=== PATIENT | female | born 1940 | race Caucasian/White ===

== ENCOUNTER 2016-11-04 20:53 | Observation (INO) | payer OTHER ==
[~2016-11-04] VITALS: Ht 160 cm; Wt 100.1 kg
[~2016-11-04 20:53] MED LIST: ALEVE220 MG PO; ANTIVERT25 MG PO; ESOMEPRAZOLE MA40 MG PO; KEFLEX500 MG PO; PERCOCET 5/31 TABLET PO; SYNTHROID100 MCG PO; ZOFRAN4 MG PO; [UNRECOGNIZED DRUG - REMARK] OP
[2016-11-04 21:59] LABS: EOSINOPHIL (%) 7.4 % (0-5); EOSINOPHIL COUNT 0.5 K/uL (0-0.3); HEMATOCRIT 35.6 % (36.0-46.0); IMMATURE GRANULOCYTE (%) 0.1 % (0.0-0.7); INSTRUMENT ABS NEUTROPHIL CT 4.3 K/uL; LYMPHOCYTE COUNT 1.6 K/uL (1.0-2.8); MCV 96.7 FL (83-99); MEAN PLAT.VOLUME 9.4 uM^3 (9.5-12.4); MONOCYTE (%) 8.4 % (3-12); MONOCYTE COUNT 0.6 K/uL (0-0.8); NEUTROPHIL (%) 60.8 % (45-76); NEUTROPHIL COUNT 4.3 K/uL (1.8-6.4); PLATELET COUNT 169 K/uL (156-360); RBC DIS.WIDTH-CV 13.8 % (11.8-14.6); RBC DIS.WIDTH-SD 49.2 % (39-53); RED BLOOD COUNT 3.68 M/uL (3.80-5.20)
[2016-11-04 22:22] LABS: CHLORIDE 109 mEq/L (99-109); POTASSIUM 3.7 mEq/L (3.7-5.4); SODIUM 143 mEq/L (136-147)
[2016-11-04 22:23] LABS: GLUCOSE 97 mg/dL (70-99)
[2016-11-04 22:25] LABS: ANION GAP 9 MEQ/L (2-14)
[2016-11-04 22:27] LABS: GFR ESTIMATE (CALCULATED) > 59 mL/min/
[2016-11-04 22:28] LABS: UREA NITROGEN (BUN) 28 mg/dL (9-23)
[2016-11-04 22:31] LABS: TROP-I INTERPRETATION NEGATIVE; TROPONIN-I < 0.01 ng/mL (0.0-0.30)
[2016-11-05 01:09] VITALS: BP 128/68
[2016-11-05 01:57] LABS: DIRECT BILIRUBIN 0.2 mg/dL (0.0-0.3); SAMPLE HEMOLYSIS CHECK 0; SAMPLE ICTERIC CHECK 0; SAMPLE LIPEMIA CHECK 0; TOTAL BILIRUBIN 0.9 MG/DL (0.0-1.0)
[2016-11-05 02:03] LABS: ALKALINE PHOSPHATASE 59 IU/L (3-129); LIPASE 30 U/L (1.0-51.0)
[2016-11-05 05:07] VITALS: BP 136/66
[2016-11-05 05:46] LABS: IRON 60 MCG/DL (35-150)
[2016-11-05 07:30] LABS: D-DIMER ELISA 0.44 mg/L FEU (< 0.57)
[2016-11-05 08:47] VITALS: BP 121/59
[2016-11-05 09:32] LABS: TROP-I INTERPRETATION NEGATIVE; TROPONIN-I < 0.01 ng/mL (0.0-0.30)
[2016-11-05 11:34] VITALS: BP 125/64
[2016-11-05 12:30] LABS: TROP-I INTERPRETATION NEGATIVE; TROPONIN-I < 0.01 ng/mL (0.0-0.30)
[2016-11-05 14:49] LABS: INTERNAL CONTROL VALID? YES
[2016-11-05 15:23] LABS: EOSINOPHIL (%) 8.1 % (0-5); EOSINOPHIL COUNT 0.4 K/uL (0-0.3); HEMATOCRIT 35.6 % (36.0-46.0); IMMATURE GRANULOCYTE (%) 0.2 % (0.0-0.7); INSTRUMENT ABS NEUTROPHIL CT 2.5 K/uL; LYMPHOCYTE COUNT 1.2 K/uL (1.0-2.8); MCH 31.4 PG (29.0-34.0); MCHC 32.3 G/DL (30.0-36.0); MCV 97.3 FL (83-99); MEAN PLAT.VOLUME 9.4 uM^3 (9.5-12.4); MONOCYTE COUNT 0.5 K/uL (0-0.8); NEUTROPHIL (%) 54.1 % (45-76); NEUTROPHIL COUNT 2.5 K/uL (1.8-6.4); PLATELET COUNT 160 K/uL (156-360); RBC DIS.WIDTH-CV 13.8 % (11.8-14.6); RBC DIS.WIDTH-SD 49.3 % (39-53); RED BLOOD COUNT 3.66 M/uL (3.80-5.20); WHITE BLOOD COUNT 4.6 K/uL (4.1-10.2)
== END 2016-11-05 17:38 | disposition home or self-care (01) ==
LOC: EME 20:53 → EDOF 23:18 → 5WEST 23:18
PROVIDERS: Emergency Medicine; Hospitalist; Nurse Practitioner Family; Physician Assistant
DX: R07.9 Chest pain, unspecified (principal); D64.9 Anemia, unspecified; R19.5 Other fecal abnormalities; G47.33 Obstructive sleep apnea (adult) (pediatric); J45.909 Unspecified asthma, uncomplicated; K21.9 Gastro-esophageal reflux disease without esophagitis; E03.9 Hypothyroidism, unspecified; N28.1 Cyst of kidney, acquired; K57.90 Diverticulosis of intestine, part unspecified, without perforation or abscess without bleeding; M25.562 Pain in left knee; M25.561 Pain in right knee; R00.2 Palpitations; Z96.643 Presence of artificial hip joint, bilateral; Z82.49 Family history of ischemic heart disease and other diseases of the circulatory system; Z80.3 Family history of malignant neoplasm of breast; Z88.8 Allergy status to other drugs, medicaments and biological substances; Z91.09 Other allergy status, other than to drugs and biological substances
CPT/HCPCS: 71020; 80048; 80076; 82272; 83540; 83690; 83880; 84443; 84466; 84484; 85025; 85379; 93005; 94660; G0378; J1644; J7120

== ENCOUNTER 2017-11-23 21:27 | Emergency (ER) | payer OTHER ==
[~2017-11-23] VITALS: Ht 157.5 cm; Wt 111.6 kg
[2017-11-23 22:17] LABS: HEMATOCRIT 37.1 % (36.0-46.0); HEMOGLOBIN 12.3 G/DL (11.9-15.5); MCHC 33.2 G/DL (30.0-36.0); MCV 96.6 FL (83-99); PLATELET COUNT 165 K/uL (156-360); RBC DIS.WIDTH-CV 13.4 % (11.8-14.6); RBC DIS.WIDTH-SD 47.1 % (39-53); RED BLOOD COUNT 3.84 M/uL (3.80-5.20); WHITE BLOOD COUNT 7.8 K/uL (4.1-10.2)
[2017-11-23 22:31] LABS: CHLORIDE 104 mEq/L (99-109); SODIUM 141 mEq/L (136-147)
[2017-11-23 22:32] LABS: MAGNESIUM 2.5 mg/dL (1.3-2.7)
[2017-11-23 22:33] LABS: GLUCOSE 99 mg/dL (70-99)
[2017-11-23 22:37] LABS: CREATININE 0.8 mg/dL (0.6-1.3); GFR ESTIMATE (CALCULATED) > 59 mL/min/
[2017-11-23 22:38] LABS: UREA NITROGEN (BUN) 21 mg/dL (9-23)
[2017-11-23 22:39] LABS: CREATINE KINASE 61 IU/L (1-294)
[2017-11-23 22:44] LABS: TROP-I INTERPRETATION NEGATIVE; TROPONIN-I < 0.01 ng/mL (0.0-0.30)
[2017-11-24 01:36] VITALS: BP 110/77
[2017-11-24 08:26] LABS: THYROTROPIN (TSH) 8.1 MIU/L (0.4-5.5)
== END 2017-11-24 01:40 | disposition home or self-care (01) ==
LOC: EME 21:27
PROVIDERS: Physician Assistant
DX: R06.09 Other forms of dyspnea (principal); J45.909 Unspecified asthma, uncomplicated; G47.30 Sleep apnea, unspecified; K21.9 Gastro-esophageal reflux disease without esophagitis; E03.9 Hypothyroidism, unspecified; Z96.643 Presence of artificial hip joint, bilateral; Z88.6 Allergy status to analgesic agent; Z91.041 Radiographic dye allergy status
CPT/HCPCS: 71046; 80048; 82550; 83735; 83880; 84443; 84484; 85027; 93005; 99281; 99285